=== PATIENT | female | born 1940 | race Caucasian/White ===

== ENCOUNTER → 2020-12-07 | Outpatient (CLI) | payer MEDICARE ==
--- NOTE | 2020-12-07 12:06 | MR ---
EXAMINATION TYPE: MR knee RT wo con DATE OF EXAM: 12/07/2020 COMPARISON: 11/21/2020 HISTORY: Right knee pain, swelling, and weakness x1 year. TECHNIQUE: Multiplanar, multisequence imaging of the right knee is performed without IV contrast. FINDINGS: MEDIAL MENISCUS: Anterior and posterior horns are intact without tear. LATERAL MENISCUS: There is a complex tear of the anterior horn and body of the lateral meniscus. CRUCIATE LIGAMENTS: The anterior and posterior cruciate ligaments are intact and unremarkable. COLLATERAL LIGAMENTS: The medial collateral ligament and lateral collateral ligament complex are inta ct and unremarkable. EXTENSOR MECHANISM: Visualized quadriceps and patellar tendons are intact. EFFUSION: There is a small knee joint effusion. POPLITEAL CYST: There is a Hoang's cyst with evidence for recent leakage/rupture. CARTILAGE: There are full-thickness articular cartilage defects throughout the lateral femoral condyl e and lateral tibial plateau with subchondral marrow edema of the lateral femoral condyle. There are partial-thickness articular cartilage defects of the medial femoral condyle and medial tibial plateau . There are partial-thickness articular cartilage defects throughout the patella. BONE MARROW SIGNAL: No focal abnormal marrow signal is appreciated. OTHER: No additional significant abnormality is appreciated. IMPRESSION: 1. Complex tear of the anterior horn and body of the lateral meniscus. 2. Tricompartmental articular cartilage defects are worst in the lateral compartment. 3. Hoang's cyst with evidence for recent leakage. 4. Small knee joint effusion.
== END | disposition home or self-care (01) ==
LOC: RADMRIMAIN 10:52
PROVIDERS: ATTEND Orthopaedic Surgery
DX: M23.341 Other meniscus derangements, anterior horn of lateral meniscus, right knee (principal); M71.21 Synovial cyst of popliteal space [Baker], right knee; M24.151 Other articular cartilage disorders, right hip

== ENCOUNTER → 2021-01-15 | Outpatient (CLI) | payer MEDICARE ==
[2021-01-15 13:55] LABS: Potassium 4.7 mmol/L (3.5-5.1)
[2021-01-15 14:27] LABS: Basophils % (A) 1 %; Eosinophils # (A) 0.1 k/uL (0-0.7); Eosinophils % (A) 2 %; HCT 46.7 % (34.0-46.0); HGB 15.2 gm/dL (11.4-16.0); Lymphocytes # (A) 1.3 k/uL (1.0-4.8); Lymphocytes % (A) 32 %; MCH 30.5 pg (25.0-35.0); MCHC 32.6 g/dL (31.0-37.0); MCV 93.5 fL (80.0-100.0); Monocytes # (A) 0.3 k/uL (0-1.0); Monocytes % (A) 6 %; Neutrophils # (A) 2.4 k/uL (1.3-7.7); Neutrophils % (A) 57 %; Platelet Count 301 k/uL (150-450); RBC 4.99 m/uL (3.80-5.40); RDW 13.9 % (11.5-15.5); WBC 4.2 k/uL (3.8-10.6)
== END | disposition home or self-care (01) ==
LOC: LABPAT 12:48
PROVIDERS: ATTEND Orthopaedic Surgery
DX: Z01.818 Encounter for other preprocedural examination (principal); M23.91 Unspecified internal derangement of right knee
CPT/HCPCS: 36415; 80051; 85025; 93005

== ENCOUNTER 2021-01-23 09:46 | Day surgery (SDC) | payer MEDICARE ==
[2021-01-21 13:32] VITALS: BMI 20.6
--- NOTE | 2021-01-22 20:20 | HP ---
HISTORY AND PHYSICAL REASON FOR ADMISSION: Surgery 01/23/2021 HISTORY OF PRESENT ILLNESS: Lizzy Nash is a 80-year-old patient seen with progressive right knee pain. We discussed options for treatment. She elected to proceed with arthroscopy. Consent obtained. PAST MEDICAL HISTORY: Hypertension, hyperlipidemia. PAST SURGICAL HISTORY: Right leg surgery. MEDICATIONS: Furosemide, lisinopril, Amitriptyline. ALLERGIES: None. SOCIAL HISTORY: Denies tobacco use. PHYSICAL EVALUATION OF THE RIGHT KNEE: Range of motion is negative 3 to 120. Mild effusion. Tenderness medial joint line. Tenderness lateral joint line. Positive medial Juan José's. Positive lateral Juan José's. Ligaments stable. Hip rotation without pain. Distal neurovascular exam intact. RADIOGRAPHS: Radiographs of the right knee revealed moderate osteoarthritis. An MRI of the right knee was also obtained revealed a complex lateral meniscal tear. IMPRESSION: 1. Internal derangement of the right knee with lateral meniscal tear. 2. Right knee osteoarthritis. 3. Hypertension. PLAN: Right knee arthroscopy with partial meniscectomy and debridement. Surgery scheduled for 01/23/2021. MMODL / IJN: [id number] /
[~2021-01-23 09:46] MED LIST: DEXAMETHASONE SOD PHOSPHATE 4 MG/ML 1 ML VIAL IV ONE; HYDROmorphone 0.5 MG/0.5 ML SYRINGE IVP PRN; LACTATED RINGERS 1,000 ML IV SCH; MIDAZOLAM 2 MG/2 ML VIAL IV PRN; ONDANSETRON 4 MG/2 ML VIAL IVP ONE
[2021-01-23] MEDS ORDERED: fentaNYL (PF) 50 MCG/ML 2 ML AMP ONE (11:52)
[2021-01-23] MEDS ORDERED: KETOROLAC 15 MG/ML 1 ML VIAL ONE (11:52)
[2021-01-23] MEDS ORDERED: LIDOCAINE 1% INJ 10MG/ML (20 ML MDV) ONE (11:52)
[2021-01-23] MEDS ORDERED: SUCCINYLCHOLINE CHLORIDE 100 MG/5 ML SYR IV ONE (11:52)
[2021-01-23] MEDS ORDERED: PROPOFOL 10 MG/ML 20 ML VIAL IV ONE (11:52)
--- NOTE | 2021-01-23 12:37 | P.OP ---
Date of Procedure: 01/23/21 Preoperative Diagnosis: Internal derangement right knee Postoperative Diagnosis: 1. Tear lateral meniscus right knee 2. Grade 4 chondromalacia lateral femoral condyle right knee 3. Reactive synovitis medial, lateral and suprapatellar compartments right knee Procedure(s) Performed: 1. Arthroscopic partial lateral meniscectomy right knee 2. Arthroscopic chondroplasty lateral femoral condyle right knee 3. Arthroscopic microfracture lateral femoral condyle right knee 4. Arthroscopic partial synovectomy medial, lateral and suprapatellar compartments right knee Anesthesia: JOSE MANUELA, local Surgeon: Dany Segundo Estimated Blood Loss (ml): 7 Pathology: none sent Condition: stable Disposition: PACU Indications for Procedure: 80-year-old patient seen with progressive right knee pain. After treatment options were discussed, she elected to proceed with arthroscopy. Operative Findings: see description of procedure Description of Procedure: Patient was taken to the operative suite. Patient underwent a general anesthe tic by the department of anesthesia. Patient was given preoperative antibiotics. The right lower extremity was placed in a well-padded arthroscopic leg vivas. The right leg was prepped and draped in the normal sterile orthopedic fashion. A lateral parapatellar and suprapatellar incision was made. Trochars were inserted. Arthroscopy was initiated. Suprapatellar pouch revealed diffuse thick reactive synovitis. The patellofemoral joint appeared to articulate congruently. There was grade 2 chondromalacia of both the patella and femoral sulcus with no osteochondral tears present. The scope was guided into the medial gutter. No loose bodies or plica were identified. The scope was then guided into the medial compartment. A medial parapatellar incision was made. Trocar inserted followed by probe. The medial meniscus was probed and found to be stable. There were grade 2 chondromalacia changes of the medial compartment with no osteochondral tears. There was some thick reactive synovitis anteriorly. I introduced a motorized shaver and performed a partial synovectomy decompressing the thick reactive synovitis. The shaver was removed. There was good decompression of the synovitis. Scope and probe were then guided into the intercondylar notch. Cruciates were identified, probed and found to be stable. The scope and probe were then guided into lateral compartment. There was a complex tear involving the anterior horn of the lateral meniscus slightly extending into the midbody. There were grade 4 chondral moist changes along the weightbearing surface lateral femoral condyle as well as the tibial plateau with some osteochondral tears present. There was thick reactive synovitis anteriorly. I performed a partial lateral meniscectomy getting down to stable meniscal tissue. I performed a chondroplasty of the lateral femoral condyle getting down to stable osteochondral tissue. I performed a partial synovectomy decompressing the thick reactive synovitis. The residual meniscus was stable. There was good decompression of the synovitis. I performed a microfracture to the area of exposed bone lateral femoral condyle penetrating the bone with resultant bleeding at the microfracture site. There was probed and the residual osteochondral surface on the periphery was stable. The scope was in guided back into the suprapatellar compartment. I introduced a motorized shaver into the superapatellar compartment. I performed a partial synovectomy. The shaver was removed. There appeared be good decompression of synovitis. I took one more look on the entire knee, no residual debris. Instruments were now removed from the joint. The joint was infiltrated with .25% Marcaine. Steri-Strips were applied to the portal sites. Sterile dressings were applied. The patient was placed into a RODRI hose. No tourniquet was utilized. The patient was awakened, transferred to a bed and taken to recovery stable satisfactory condition.
[2021-01-23 12:41] VITALS: TEMP 97.5
[2021-01-23 13:07] VITALS: RESP 16
[2021-01-23] MEDS ORDERED: traMADol 50 MG TAB ONE (14:28)
[2021-01-23 15:25] VITALS: BP 145/78; PULSE 63
== END 2021-01-23 15:30 | disposition home or self-care (01) ==
LOC: OR 09:46
PROVIDERS: ATTEND Orthopaedic Surgery
DX: S83.281A Other tear of lateral meniscus, current injury, right knee, initial encounter (principal); I10 Essential (primary) hypertension; E78.5 Hyperlipidemia, unspecified; M17.11 Unilateral primary osteoarthritis, right knee
CPT/HCPCS: 29881; 29879; J1100; J2405; J0690; J2001; J3010; J1885; J0330; J2704; J1170

== ENCOUNTER → 2023-02-10 | Outpatient (CLI) | payer MEDICARE ==
--- NOTE | 2023-02-10 11:54 | MR ---
EXAMINATION TYPE: MR shoulder LT wo con DATE OF EXAM: 02/10/2023 11:32 AM COMPARISON: NONE HISTORY: Lt shoulder pain TECHNIQUE: Multiplanar multispin echo imaging of the left shoulder was performed. FINDINGS: Rotator cuff : Full thickness retracted tear supraspinatus tendon with fluid filled gap of 1.7 cm. Th ere is muscular atrophy seen. There is also full thickness partial tear involving the infraspinatus w ith additional muscular atrophy seen. There is tendinosis of the subscapularis tendon. Bursa: Bilobed complex cystic structure seen in posterior lateral to the left humerus measuring 4.6 c m craniocaudal dimension with each bilobed component measuring 2.5 and 1.5 cm. This could reflect a g anglion cyst. Small joint effusion noted. Musculature: Skin or atrophy as above. Acromioclavicular joint : Moderate AC joint arthropathy. Lateral downsloping of the acromion with sub acromial spurring. Subacromial impingement. Osseous structures : There are no fractures or regions of abnormal bone marrow signal intensity. Long biceps tendon : Thinning and heterogeneity of the biceps tendon within the bicipital groove and partial tear is suspected. Glenohumeral Joint fluid : There is no glenohumeral joint effusion. Cartilage and Bone : No focal hyaline cartilage defects are noted. No Hill-Sachs, reverse Hill-Sachs, or bony Bankart lesions are seen. Labrum : There are no SLAP or soft tissue Bankart lesions. No paralabral cysts are seen. OTHER FINDINGS : none IMPRESSION: 1. Focal thickness retracted tear supraspinatus tendon with muscular atrophy. 2. Full-thickness partial tear infraspinatus tendon with muscular atrophy seen. 3. heterogeneity and thinning of the biceps tendon with suspected partial tear. 4. bilobed complex fluid collection may reflect ganglion cyst as noted above.
== END | disposition home or self-care (01) ==
LOC: RADMRIMAIN 10:49
PROVIDERS: ATTEND Orthopaedic Surgery
DX: M75.122 Complete rotator cuff tear or rupture of left shoulder, not specified as traumatic (principal)

== ENCOUNTER → 2024-12-05 | Outpatient (CLI) | payer MEDICARE ==
--- NOTE | 2024-12-07 14:58 | MR ---
EXAMINATION TYPE: MR knee LT wo con DATE OF EXAM: 12/05/2024 6:05 PM COMPARISON: 11/22/2024. CLINICAL INDICATION: Female, 84 years old with history of M25.562 PAIN IN LEFT KNEE; PHH, Left knee p ain for 4 months. no known injury TECHNIQUE: Multi planar, multi sequence imaging was performed of the knee including: Triplane proton density fat-saturated images and T1-weighted imaging. No Gadolinium was given. IV Contrast: mL (none if empty) FINDINGS: Medial meniscus: Intact Medial femorotibial cartilage: No full-thickness defects. Medial collateral ligament: Intact Lateral meniscus: Nonvisualization of the root of the anterior horn with anterior horn and body m eniscal tear extending to the upper surface on the anterior horn and body. Lateral femorotibial cartilage: No full-thickness defects. Lateral collateral ligament complex: High PD edema is seen within the superficial and deep aspect s of the ligament with some increased PD signal near its attachment to the femur. Patellofemoral alignment: Normal Patellofemoral cartilage: No full-thickness defects. Extensor mechanism: Intact. Joint/bursal fluid: Small joint effusion. Muscles/tendons: The patellar tendon, quadriceps tendon, IT band, pes anserinus tendons, semimembrano eden tendon, popliteus tendon, and biceps femoris tendon are all within normal limits. Bone marrow: Mild bony edema within the lateral tibial condyle and lateral femoral condyle. Anterior cruciate ligament: Higher PD signal throughout the ACL. No discrete tear. Posterior cruciate ligament: Thickened appearance with high PD signal series 501 image 21. Soft tissues: Diffuse soft tissue edema throughout the thin surrounding the knee.. Hoang's cyst i s noted posteriorly measuring up to 4.9 cm. IMPRESSION: 1. Grade 2 LCL sprain with associated soft tissue edema throughout the soft tissue structures of the knee. 2. Lateral meniscus anterior root tear suggested. 3. Lateral meniscus anterior horn and meniscal body tear. 4. Bony edema within the lateral tibial plateau and lateral femoral condyle likely secondary to #2/3 5. Edema within the PCL suggestive of low-grade sprain. Additional ACL edema noted. 6. Leaking popliteal fossa Hoang's cyst. Findings communicated to Dany Segundo DO on 12/07/2024 2:[address] Lenny Espitia. [facility], , 12/07/2024 2:56 PM
== END | disposition home or self-care (01) ==
LOC: RADMRIMAIN 16:54
PROVIDERS: ATTEND Orthopaedic Surgery
DX: S83.282A Other tear of lateral meniscus, current injury, left knee, initial encounter (principal); R60.0 Localized edema; M71.22 Synovial cyst of popliteal space [Baker], left knee; X58.XXXA Exposure to other specified factors, initial encounter